=== PATIENT | male | born 1990 | race African-American/Black ===

== ENCOUNTER 2018-08-02 14:57 | Emergency (ER) | payer SELFPAY ==
[2018-08-02] MEDS ORDERED: CEFTRIAXONE INJ 250 MG VIAL IM ONE (15:47)
[2018-08-02] MEDS ORDERED: AZITHROMYCIN 250 MG TABLET PO ONE (15:47)
[2018-08-02] MEDS ORDERED: LIDOCAINE 1% INJ-PF (10 MG/ML) 30 ML SDV INJ ONE (15:47)
[2018-08-02] MEDS ORDERED: ONDANSETRON 4 MG TAB.RAPDIS PO ONE (15:48)
--- NOTE | 2018-08-02 15:54 | ER Document Report ---
ED General - General Chief Complaint: Cold Symptoms Stated Complaint: COLD SYMPTOMS, STD CHECK Time Seen by Provider: 08/02/18 15:37 Notes: Patient is a 28-year-old male that comes to the emergency department for more than one complaint. First complaint is that he has a possible exposure to an STD and he wants to be checked. Exposure was around 1 week ago. He denies discharge, dysuria, rash, groin pain, abdominal pain. He secondarily complains of about 2 days of upper respiratory symptoms including congestion, mild cough, mild sore throat. He denies fever or chills. Third complaint is that he has a history of Crohn's disease, he was on infusions (cannot member the name of the infusions), has had intermittent abdominal pain and occasional bloody stools although denies current abdominal pain or bloody stools today. Wondering if he can have some sort of treatment before following up. Denies any other medical history. Denies smoking. TRAVEL OUTSIDE OF THE [place] IN LAST 30 DAYS: No - Related Data Allergies/Adverse Reactions: No Known Allergies Allergy (Verified 08/02/18 14:58) Past Medical History - General Information source: Patient - Social History Smoking Status: Never Smoker Chew tobacco use (# tins/day): No Drug Abuse: None Lives with: Family Family History: Reviewed & Not Pertinent Patient has suicidal ideation: No Patient has homicidal ideation: No Renal/ Medical History: Denies: Hx Peritoneal Dialysis GI Medical History: Reports: Hx Crohn's Disease Past Surgical History: Reports: Hx Genitourinary Surgery - Immunizations Immunizations up to date: Yes Hx Diphtheria, Pertussis, Tetanus Vaccination: Yes Review of Systems - Review of Systems Constitutional: No symptoms reported EENT: See HPI Cardiovascular: No symptoms reported Respiratory: See HPI Gastrointestinal: See HPI Genitourinary: See HPI Male Genitourinary: See HPI Musculoskeletal: No symptoms reported Skin: No symptoms reported Hematologic/Lymphatic: No symptoms reported Neurological/Psychological: No symptoms reported Physical Exam - Vital signs Vitals: Temp Pulse Resp BP Pulse Ox 98.5 F 77 18 124/76 97 08/02/18 14:59 08/02/18 14:59 08/02/18 14:59 08/02/18 14:59 08/02/18 14:59 - Notes Notes: GENERAL: Alert, interacts well. No acute distress. HEAD: Normocephalic, atraumatic. EYES: Pupils equal, round, and reactive to light. Extraocular movements intact. ENT: Oral mucosa moist, tongue midline. Oropharynx unremarkable. Airway patent. Mild nasal congestion, no nasal septal hematoma, TM's intact. NECK: Full range of motion. Supple. Trachea midline. LUNGS: Clear to auscultation bilaterally, no wheezes, rales, or rhonchi. No respiratory distress. HEART: Regular rate and rhythm. No murmur ABDOMEN: Soft, non-tender. Non-distended. Bowel sounds present in all 4 quadrants. GENITOURINARY: Deferred EXTREMITIES: Moves all 4 extremities spontaneously. No edema, normal radial and dorsalis pedis pulses bilaterally. No cyanosis. BACK: no cervical, thoracic, lumbar midline tenderness. No saddle anesthesia, normal distal neurovascular exam. NEUROLOGICAL: Alert and oriented x3. Normal speech. [cranial nerves II through XII grossly intact]. PSYCH: Normal affect, normal mood. SKIN: Warm, dry, normal turgor. No rashes or lesions noted. Course - Re-evaluation Re-evalutation: Patient is well-appearing, talkative, laughing, energetic. Clear lungs, he does have mild nasal congestion, no sinus tenderness, unremarkable oral pharyngeal exam. Abdomen is soft and benign, no current abdominal complaints. Patient has no symptoms after exposure but this was very recent. Requesting testing and treatment for this. Requesting something for Crohn's disease. Given Rocephin, azithromycin, placed on prednisone, discussed importance of close GI follow-up. Discussed return precautions in detail. Patient states understanding and agreement. - Vital Signs Vital signs: Temp Pulse Resp BP Pulse Ox 98.0 F 81 16 105/63 98 08/02/18 16:32 08/02/18 16:32 08/02/18 16:32 08/02/18 16:32 08/02/18 16:32 Discharge - Discharge Clinical Impression: Sinus congestion, Possible exposure to STD Crohns disease Qualifiers: Gastrointestinal tract location: unspecified location Digestive disease complication type: unspecified complication Qualified Code(s): K50.919 - Crohn' s disease, unspecified, with unspecified complications Condition: Stable Disposition: HOME, SELF-CARE Additional Instructions: Examination indicates most likely a viral upper respiratory infection. This should resolve with time. Prednisone should help, this should also help with your Crohn's disease symptoms. Please follow-up with gastroenterology for additional management of Crohn's disease. You have been covered for potential STD exposure. Recommendation is to avoid sexual intercourse for 1 week pending results. Return for any concerning symptoms including spiking fever, difficulty breathing , severe abdominal pain, vomiting, or any other concerning or worsening symptoms. Prescriptions: Prednisone [Deltasone 20 mg Tablet] 3 tab PO DAILY 5 Days #15 tablet
[2018-08-02 16:33] VITALS: BP 105/63
[2018-08-02 17:42] LABS: CHLAM PCR NOT DETECTED (NOT DETECT); GON PCR NOT DETECTED (NOT DETECT)
== END 2018-08-02 16:32 | disposition home or self-care (01) ==
LOC: ER 14:57
DX: K50.919 Crohn's disease, unspecified, with unspecified complications (principal); Z20.2 Contact with and (suspected) exposure to infections with a predominantly sexual mode of transmission; R09.81 Nasal congestion; R05 Cough; J02.9 Acute pharyngitis, unspecified
CPT/HCPCS: 99283; 96372; 87491; 87591; S0119; J3490; J0696